=== PATIENT | male | born 1960 | race Caucasian/White ===

== ENCOUNTER 2017-09-11 11:43 | Emergency (ER) | payer OTHER ==
[~2017-09-11] VITALS: Ht 172.7 cm; Wt 79.4 kg
--- NOTE | 2017-09-11 12:19 | ED PSYCHIATRIC COMPLAINT ---
History of Present Illness General Chief Complaint: ETOH/Drug Related Complaint Stated Complaint: REQUESTING DETOX Source: patient Exam Limitations: no limitations Vital Signs & Intake/Output Vital Signs & Intake/Output Vital Signs Date Time Temp Pulse Resp B/P B/P Pulse O2 O2 Flow FiO2 Mean Ox Delivery Rate 09/11 2150 98.9 82 18 173/89 09/11 1838 98.9 82 18 173/89 09/11 1838 98.9 82 18 173/89 98 Room Air 09/11 1444 80 164/88 09/11 1437 98.8 80 18 164/88 09/11 1436 98.8 80 18 164/88 98 Room Air 09/11 1335 Room Air 09/11 1157 97.3 76 18 158/93 98 Room Air Allergies Coded Allergies: No Known Allergies (09/11/17) Triage Note: PRESENTS TO ED REQUESTING ETOH DETOX. REPORTS TO HAVE BEEN IN CONTACT WITH [facility] WHOM RECOMMENDED HE COMES HERE FOR EVALUATION. AVERAGES ABOUT A SIX-PACK OF BEER DAILY AND A COUPLE OF SHOTS OF VODKA. LAST DRINK THIS AM APPROXIMATELY 3 HRS AGO. Triage Nurses Notes Reviewed? yes Onset: Just prior to arrival Duration: hour(s):, constant, continues in ED Timing: recent history Severity: moderate Associated Symptoms: impaired concentration HPI: The patient presents for alcohol detox wishing to go to [facility]. His last drink was prior to admission. He denies alcohol withdrawal seizure DT fever chills nausea vomiting diarrhea abdominal pain chest pain shortness breath headache dysuria rash bleeding. (Kofi Gonzalez MD) Past History Travel History Traveled to [place] past 21 day No Medical History Any Pertinent Medical History? see below for history Psychiatric: depression, ETOH ABUSE. Surgical History Surgical History: non-contributory Psychosocial History What is your primary language [place] Tobacco Use: Current Daily Use Daily Tobacco Use Amount/Type: => 5 Cigarettes daily Family History Hx Contributory? No (Kofi Gonzalez MD) Review of Systems Review of Systems Constitutional: Reports: no symptoms. EENTM: Reports: no symptoms. Respiratory: Reports: no symptoms. Cardiovascular: Reports: no symptoms. GI: Reports: no symptoms. Genitourinary: Reports: no symptoms. Musculoskeletal: Reports: no symptoms. Skin: Reports: no symptoms. Neurological/Psychological: Reports: no symptoms. Hematologic/Endocrine: Reports: no symptoms. Immunologic/Allergic: Reports: no symptoms. All Other Systems: Reviewed and Negative (Kofi Gonzalez MD) Physical Exam Physical Exam General Appearance: well developed/nourished, alert, awake, mild distress Head: atraumatic, normal appearance Eyes: Bilateral: normal appearance, PERRL, EOMI. Ears, Nose, Throat: normal pharynx, normal ENT inspection, hearing grossly normal Neck: normal inspection, supple, full range of motion, no midline tenderness Respiratory: normal breath sounds, chest non-tender, no respiratory distress, quiet respiration, lungs clear Cardiovascular: regular rate/rhythm, normal peripheral pulses, norml femoral pulses equa Gastrointestinal: normal bowel sounds, soft, non-tender, no organomegaly Extremities: normal range of motion, no ligament instability Neurological/Psychiatric: no motor/sensory deficits, awake, alert, anxious, digital developer II-XII nml as tested Appearance/Memory/Insight: impaired insight Thoughts/Hallucinations: no apparent hallucination Skin: intact, normal color, warm/dry SAD PERSONS Done? patient not suicidal (Kofi Gonzalez MD) Progress Differential Diagnosis: drug intoxication, drug overdose, drug withdrawal, electrolyte abnormality, hypoglycemia Plan of Care: Orders Procedure Date/time Status Regular Diet 09/11 D Active CIWA 09/11 1201 Active URINE DRUG SCREEN FOR ER ONLY 09/11 1201 Complete MAGNESIUM 09/11 1201 Complete ETHANOL 09/11 1201 Complete COMPREHENSIVE METABOLIC PANEL 09/11 1201 Complete CBC WITHOUT DIFFERENTIAL 09/11 1201 Complete Current Medications Sig/Ana Start time Last Medication Dose Stop Time Status Admin Sertraline HCl 50 MG DAILY 09/12 0900 UNVr (Zoloft) Clonazepam 1 MG BID 09/11 2100 UNVr 09/11 (Klonopin 1MG Tab) 09/18 2058 2150 Sertraline HCl 50 MG QPM 09/11 2100 CANr (Zoloft) Trazodone HCl 50 MG AT BEDTIME 09/11 2100 UNVr 09/11 (Desyrel) 2150 Clonidine 0.1 MG Q8 09/11 1400 UNVr 09/11 (Catapres) 2150 Gabapentin 300 MG Q8 09/11 1400 UNVr 09/11 (Neurontin) 2150 Laboratory Tests 09/11/17 1238: Anion Gap 14, Estimated GFR > 60, BUN/Creatinine Ratio 15.5, Glucose 94, Calcium 8.7, Magnesium 1.6, Total Bilirubin 0.7, AST 67 H, ALT 58, Alkaline Phosphatase 53, Total Protein 7.1, Albumin 4.2, Globulin 2.9, Albumin/Globulin Ratio 1.4, CBC w Diff NO MAN DIFF REQ, RBC 4.27 L, MCV 93.8, MCH 32.6 H, MCHC 34.8, RDW 14.6 H, MPV 7.9, Gran % 61.3, Lymphocytes % 25.6, Monocytes % 11.2 H, Eosinophils % 0.6, Basophils % 1.3, Absolute Granulocytes 4.1, Absolute Lymphocytes 1.7, Absolute Monocytes 0.8 H, Absolute Eosinophils 0, Absolute Basophils 0.1, Serum Alcohol 122.0 09/11/17 1234: Urine Opiates Screen < 100, Methadone Screen 49, Barbiturate Screen < 60, Ur Phencyclidine Scrn < 6.00, Amphetamines Screen < 100, U Benzodiazepines Scrn < 85, Urine Cocaine Screen < 50, Urine Cannabis Screen < 5.00 Hand-Off Endorsed To: Lawson Lopez MD Endorsed Time: 1900 Pending: other (RON) (Kofi Gonzalez MD) Hand-Off Endorsed To: Kofi Gonzalez MD Endorsed Time: 0700 Pending: other (Lawson Lopez MD) Departure Departure Disposition: STILL A PATIENT Condition: Stable Clinical Impression Primary Impression: Alcohol dependence Secondary Impressions: Alcohol intoxication Referrals: Unknown (PCP/Family) Departure Forms: Customer Survey General Discharge Information (Kofi Gonzalez MD)
[2017-09-11 12:46] LABS: ABSOLUTE BASOPHIL COUNT 0.1 /CUMM (0.0-0.2); ABSOLUTE EOSINOPHIL COUNT 0 /CUMM (0.0-0.7); ABSOLUTE GRANULOCYTE CT 4.1 /CUMM (1.4-6.5); ABSOLUTE LYMPH COUNT 1.7 /CUMM (1.2-3.4); ABSOLUTE MONOCYTE COUNT 0.8 /CUMM (0.10-0.60); BASOPHIL % 1.3 % (0.0-2.0); EOSINOPHIL % 0.6 % (0-5); GRANULOCYTE % 61.3 % (42.2-75.2); HEMATOCRIT 40.1 % (42-52); MEAN CORPUSCULAR HGB 32.6 PG (27.0-31.0); MEAN CORPUSCULAR HGB CONC 34.8 G/DL (33.0-37.0); MEAN CORPUSCULAR VOLUME 93.8 FL (80.0-94.0); MEAN PLATELET VOLUME 7.9 FL (7.4-10.4); PLATELET COUNT 204 /CUMM (130-400); RBC DISTRIBUTION WIDTH 14.6 % (11.5-14.5); RED BLOOD CELL CT 4.27 /CUMM (4.70-6.10); WHITE BLOOD CELL COUNT 6.7 /CUMM (4.8-10.8)
[2017-09-12 09:46] VITALS: BP 148/72
== END 2017-09-12 10:05 ==
LOC: ERH 11:43
PROVIDERS: Emergency Medicine
DX: F10.229 Alcohol dependence with intoxication, unspecified (principal)
CPT/HCPCS: 80307; G0480